=== PATIENT | male | born 1995 | race Two or more races ===

== ENCOUNTER 2025-08-09 21:39 | Emergency (ER) | payer BC ==
[~2025-08-09] VITALS: Ht 177.8 cm; Wt 83.9 kg
--- NOTE | 2025-08-09 22:45 | RADIOLOGY REPORT ---
EXAM: DI CHEST,SINGLE VIEW TECHNIQUE: Single frontal chest radiograph CLINICAL HISTORY: FOREIGN BODY COMPARISON: None FINDINGS/IMPRESSION: The lungs are clear. The cardiomediastinal silhouette is unremarkable. No pleural effusion or pneumothorax. No acute osseous abnormality. No radiopaque foreign body is seen.
--- NOTE | 2025-08-09 22:59 | Physician Documentation ---
History of Present Illness ~ Chief Complaint: Foreign body Stated Complaint: UNABLE TO EAT OR DRINK Time Seen by MD: 22:53 Mode of Arrival: POV HPI Patient presents to the emergency room with chief complaint of esophageal foreign body. He states he a big bite of chicken this evening and then feels as if it is stuck. He has tried to drank however after a small amount of time after drinking vomits up the fluid. No fevers no shortness of breath no prior instances. Medication Reconciliation Allergies: Coded Allergies: No Known Allergies (Unverified , 08/09/25) Scheduled Pantoprazole Sodium (PROTONIX tablet), 1 TAB PO DAILY Review of Systems ROS All review of systems negative except as per HPI Physical Exam Vital Signs: Temperature: 98.1, Source: Oral, Heart Rate: 60, Respiratory Rate: 14, BP: 133/62, Pulse Oximetry: 99, Weight: 83.900 Oxygen Flow Rate: 0 Physical Exam General: Patient is awake, alert, oriented x4 in no acute distress and well a ppearing.~ Head: Normocephalic and atraumatic. Eyes: Conjunctival normal. EOMI. PERRL. ENT: Mucous membranes moist. Neck: Supple, trachea is midline. Chest: Clear to auscultation bilaterally without rales, rhonchi, or wheezes. There is no accessory muscle use or retractions. Cardiac: RRR without murmurs, gallops, or rubs. Abd: Soft, nondistended, nontender, with normoactive bowel sounds. No guarding, rebound, or rigidity. Progress Progress Note Spoke with GI specialist who is coming in for evaluation. Requests benzodiazepine administration. Results/Orders Results/Orders Completed Orders - HELDER WRIGHT MD Glucagon, Human Recombinant (Glucagen In (08/09/25 23:00) Ondansetron Inj. (Zofran 4mg/2ml Vial) (08/09/25 23:00) Normal Saline 1000ml (0.9% Sodium Chlori (08/10/25 03:15) Lorazepam Inj (Ativan Inj) (08/10/25 04:10) Midazolam 1 Mg/Ml 2ml Inj. (Versed 1 Mg/ (08/10/25 06:34) Propofol Inj (Diprivan Inj) (08/10/25 06:35) Vital Signs 08/09/25 08/09/25 08/09/25 08/09/25 21:43 22:15 22:33 23:31 Temp 98.1 Pulse 70 60 64 Resp 15 16 14 18 B/P (MAP) 140/75 133/62 (85) Pulse Ox 98 99 99 O2 Flow Rate 0 08/10/25 08/10/25 08/10/25 08/10/25 00:54 02:58 04:22 04:24 Pulse 67 68 65 Resp 18 16 16 16 B/P (MAP) 119/81 (94) 114/86 (95) 134/64 (87) Pulse Ox 99 97 99 08/10/25 08/10/25 08/10/25 08/10/25 06:05 06:52 07:00 07:10 Temp 98.3 Pulse 65 74 65 68 Resp 18 16 13 12 B/P (MAP) 98/47 104/54 98/56 Pulse Ox 95 95 97 O2 Delivery Room Air 08/10/25 08/10/25 08/10/25 08/10/25 07:15 07:20 07:23 07:39 Pulse 65 64 76 Resp 12 13 13 B/P (MAP) 113/69 111/77 113/113 Pulse Ox 96 97 67 O2 Delivery Nasal Cannula O2 Flow Rate 2.0 08/10/25 08/10/25 07:59 09:17 Pulse 55 Resp 15 16 B/P (MAP) 105/79 (88) Pulse Ox 96 Medical Decision Making Findings Patient presented to the emergency room with report of esophageal food bolus. Differentials include but are not limited to esophageal food bolus, esophageal abrasion, esophageal rupture, Schatzki's ring. Attempts at passing food bolus with fizzy liquids and glucagon failed. Ativan was administered try and help patient relax to past food bolus however he continues to not be able to tolerate p.o. GI has been consulted and we will bring him to the GI lab for management. Departure Disposition: HOME / SELF CARE / HOMELESS Impression: Primary Impression: Esophageal obstruction due to food impaction Condition: Improved Discharge Instructions: General Discharge Instructions Additional Instructions: Be careful to chew food thoroughly Referrals: NO PRIMARY CARE PROVIDER (PCP) Prescriptions Pantoprazole Sodium (PROTONIX tablet) 40 Mg Tablet.dr 1 TAB PO DAILY for 30 Days, #30 TAB 0 Refills Prov: HELDER WRIGHT MD 08/10/25 Signature Scribe Signature: No scribe Attestation: The note accurately reflects work and decisions made by me.Helder Wright MD 08/11/25 00:40 HELDER WRIGHT MD Aug 09, 2025 22:59
[2025-08-09] MEDS: ondansetron/PF 4mg/2ml inj IV ONE (23:23)
[2025-08-09] MEDS: glucagon, human recombinant 1mg kit IV ONE (23:28)
[2025-08-10] VITALS (9 sets, daily range): BP systolic 98–121; BP diastolic 47–113; PULSE 55–76; RESP 12–18; TEMP 98.3; O2SAT 67–97
[2025-08-10] MEDS: normal saline 1000ml 1,000 ML IV ONE (03:29)
[2025-08-10] MEDS ORDERED: PANT-47 PO (05:50)
[2025-08-10] MEDS ORDERED: midazolam 1 mg/ML 2ml injection ONE (06:34)
[2025-08-10] MEDS ORDERED: propofol inj 20 ML IV ONE (06:35)
== END 2025-08-10 09:24 | disposition home or self-care (01) ==
LOC: ER 21:40
DX: T18.128A Food in esophagus causing other injury, initial encounter (principal); W44.F3XA Food entering into or through a natural orifice, initial encounter; Y93.89 Activity, other specified; Y92.89 Other specified places as the place of occurrence of the external cause; Y99.8 Other external cause status
CPT/HCPCS: 43239; 43247; 71045; 96361; 96374; 96375; 99285; J1610; J2060; J2250; J2405; J2704; J7030; J7120; A4620

== ENCOUNTER 2025-08-23 09:50 | Day surgery (SDC) | payer BC ==
[~2025-08-23] VITALS: Ht 177.8 cm; Wt 83.0 kg
[2025-08-23] VITALS (9 sets, daily range): BP systolic 99–112; BP diastolic 55–64; PULSE 52–80; RESP 12–16; TEMP 98.4; O2SAT 96–100
[~2025-08-23 09:50] MED LIST: PANT-47 PO
[2025-08-23] MEDS ORDERED: LIDOcaine 2% Viscous 15ml cup ONE (10:43)
[2025-08-23] MEDS ORDERED: fentaNYL/PF 50MCG/1 ML 2ML syringe ONE (10:43)
[2025-08-23] MEDS ORDERED: simethicone 40mg/0.6ml oral drops 15ml ONE (10:43)
[2025-08-23] MEDS ORDERED: MIDAZolam 1 MG/ML 5ML VIAL ONE (10:43)
[2025-08-23] MEDS ORDERED: propofol 10mg/ml 20ml vial IV ONE (10:43)
--- NOTE | 2025-08-30 13:00 | PATHOLOGY REPORT ---
[facility] [address] [place] [address] SURGICAL PATHOLOGY REPORT CaseNumber: [id number] Surgeon:Gricel Alarcon M.D. CLINICAL INFORMATION CLINICAL INFORMATION: Epigastric pain and dysphagia. DIAGNOSIS DIAGNOSIS: A.STOMACH, ANTRUM; BIOPSY - REACTIVE GASTROPATHY. - NEGATIVE FOR INTESTINAL METAPLASIA - NEGATIVE FOR H. PYLORI (CONFIRMED BY IMMUNOSTAIN). DIAGNOSIS: B.ESOPHAGUS, DISTAL AND MID; BIOPSY - BENIGN SQUAMOUS AND JUNCTIONAL MUCOSA WITH INCREASED EOSINOPHILS. - NEGATIVE FOR INTESTINAL METAPLASIA. - SEE COMMENT. Comment: These histologic changes could be seen in both gastroesophageal reflux or eosinophilic esophagitis. MICROSCOPIC DESCRIPTION A. STOMACH, ANTRUM MICROSCOPIC DESCRIPTION: 1 H&E slide is reviewed. It shows a fragment of gastric mucosa with reactive epithelial changes including foveolar cells with enlarged nuclei and reduced apical mucin, as well as stromal expansion by smooth muscle and endothelial cells. I do not see any intraepithelial neutrophilic inflammation. H. pylori immunostain is performed and is negative for organisms. An alcian blue stain is negative for intestinal mucin. B. ESOPHAGUS, DISTAL AND MID MICROSCOPIC DESCRIPTION: 1 H&E-stained slide is examined showing 4 biopsy fragments of mucosa. Both gastroesophageal junctional mucosa and esophageal squamous mucosa, are present. The junctional fragment shows no evidence of inte stinal metaplasia, however, there is moderate spongiosis, moderate basal cell hyperplasia, and increased intraepithelial eosinophils (up to 24 in 1 high- powered field) associated with intraepithelial lymphocytes. One of the other squamous only fragments shows mild but similar histologic changes (with up to 17 eosinophils in 1 high-power field). The remaining 2 squamous only fragments do not show increased intraepithelial eosinophils. An alcian blue stain is negative for intestinal mucin. GROSS DESCRIPTION A. STOMACH, ANTRUM GROSS DESCRIPTION: Received in a container of formalin labeled with the patient's name, number, and "antrum biopsy" are three pieces of villalba tissue 0.2- 0.6 x 0.1 x 0.1 cm. The specimen is entirely submitted as A1. The time at which the specimen was removed was 1059. The time at which the specimen was placed in formalin was 1059. B. ESOPHAGUS, DISTAL AND MID GROSS DESCRIPTION: Received in a container of formalin labeled with the patient's name, number, and "distal and mid esophagus" are four pieces of ng- villalba tissue 0.2-0.4 x 0.1 x 0.1 cm. The specimen is entirely submitted as B1. The time at which the specimen was removed was 1101. The time at which the specimen was placed in formalin was 1101. Electronically signed by: Chalino Rosado, 08/30/2025 12:24:00 PM
== END 2025-08-23 12:40 | disposition home or self-care (01) ==
LOC: GI LAB 09:50
PROVIDERS: ATTEND Internal Medicine Gastroenterology
DX: R13.19 Other dysphagia (principal); K21.00 Gastro-esophageal reflux disease with esophagitis, without bleeding; K31.89 Other diseases of stomach and duodenum; Z79.899 Other long term (current) drug therapy
CPT/HCPCS: 43239; 82948; 99152; J2250; J2704; J3010; J7120; Z7512; A4620